=== PATIENT | female | born 1980 | race Caucasian/White ===

== ENCOUNTER 2016-08-13 16:34 | Emergency (ER) | payer OTHER ==
[~2016-08-13] VITALS: Ht 167.6 cm; Wt 109.1 kg
[~2016-08-13 16:34] MED LIST: CYCL10TA9 PO; ONDA8TAB7 PO; OXYC1TAB24 PO
[2016-08-13 16:43] VITALS: BP 178/98; PULSE 96; RESP 18; O2SAT 100
[2016-08-13 18:05] LABS: BASOPHILS % (AUTO) 0.2 % (0-3); EOSINOPHILS % (AUTO) 4.5 % (0-5); MONOCYTES % (AUTO) 7.5 % (4-12); Mean Corpuscular Hemoglobin 30.6 pg (27.0-35.0); Mean Corpuscular Volume 90.5 fL (81-100); NEUTROPHILS % (AUTO) 60.1 % (40-74); Platelet Count 342 bil/L (150-400)
[2016-08-13 18:26] LABS: Magnesium 1.9 mg/dL (1.6-2.6)
--- NOTE | 2016-08-13 18:27 | ED.REPORT ---
HPI-Abd Pain F Under 40 Date of Service Aug 13, 2016 ED Provider: Chase Ornelas MD This patient is a 36 year old female with a history of hysterectomy, kidney stones, and endometriosis presenting to the ED complaining of RLQ abdominal pain that started suddenly at 1430 today. Pt. was here 1.5 years ago for similar symptoms, and she states that the pain that she is feeling now is the same as this previous episode. At that time, she was diagnosed with swollen lymph nodes near her appendix. She also admits to a low-grade fever but denies diarrhea, hematuria, dysuria, or vomiting. Nursing Notes Stated Complaint: POSS APPENDIX Chief Complaint: Female Abdominal Pain Nursing Notes Reviewed: Yes Allergies: Coded Allergies: codeine (Verified Allergy, Intermediate, Nausea,Vomiting, 04/10/16) Scheduled Cyclobenzaprine (Cyclobenzaprine) 10 Mg Tablet 10 MG PO BID Tamsulosin (Flomax) 0.4 Mg Capsule 0.4 MG PO DAILY Scheduled PRN Ibuprofen (Ibuprofen) 800 Mg Tablet 800 MG PO TID PRN PRN For Pain Ondansetron ODT (Zofran ODT) 8 Mg Tablet 8 MG PO QID PRN PRN For Nausea oxyCODONE-Acetaminophen 5-325 mg (oxyCODONE-Acetaminophen 5-325 mg) 1 Each Tablet 1 TAB PO Q6H PRN PRN For Pain General Time Seen by MD: 18:24 Chief Complaint Abdominal pain (RLQ) Hx Obtained From: Patient Arrived By: Walk-in Sudden in Onset?: Yes Onset Occurred: 1 - 4 hours ago Symptom Duration: Since onset Progression since Onset: Unchanged Location: : RLQ Quality: Same as prior Radiation: : Does not radiate Severity: Current: Moderate Severity: Maximum: Moderate Associated with: Reports: Fever (Low-grade), Denies: Dysuria, Hematuria, Vomiting Pertinent Negative: Pt denies other symptoms Recent Healthcare: No recent doctor visit, No recent hospitalization Similar Sx Previous: Yes Past Medical History Past Medical History GERD Kidney stones History of UTI Endometriosis after diagnostic laparoscopy Osteoarthritis of the hands Depression Swollen lymph nodes around appendix Past Surgical History Diagnostic laparoscopy for endometriosis Shoulder Foot Reports: Hysterectomy Smoking History Never Smoker Social History Alcohol Use: "Social" Other Social History: Good social support, Local resident Ambulatory Status Independent Review of Systems Basic Review of Systems Eyes: Vision NL, No discharge ENT: Hearing NL, No pain, No nasal congestion, No pharyngeal pain Neurologic: NL mental status, No weakness, No numbness Psychiatric: Normal thought content Constitutional: Reports: Fever (Low-grade) GI: Reports: Abdominal pain, Denies: Diarrhea, Vomiting Female: Denies: Dysuria, Hematuria Complete sys rev & neg: except as marked. Physical Exam Initial Vital Signs Vital Signs (First) Date Time Temp Pulse Resp B/P Pulse Ox O2 Delivery O2 Flow Rate FiO2 08/13/16 16:43 36.3 96 18 178/98 100 Room Air Initial VS: Reviewed Head / Eyes: Atraumatic, Normocephalic, PERRL ENT: Mucous membranes moist, Conjunctiva normal, No scleral icterus Neck: Supple, Non-tender, Full range of motion Lymphatic: No lymphadenopathy Extremities: Vascular intact, Neuro intact Skin: Warm, Dry, No cyanosis Neurologic: Alert, Oriented, Nonfocal Psychiatric: Mood/affect normal General/Constitutional: Awake, Alert, Well appearing, Well developed Respiratory / Chest: Atraumatic, Breath sounds NL, Breath sounds = bilat, No respiratory distress Cardiovascular: Heart rate NL, Regular rhythm, Heart sounds NL, No murmurs Abdomen: Atraumatic, Soft, BS normoactive Back: Atraumatic, Full range of motion, No CVA tenderness Interpretation & Diagnostics Interpretation & Diagnostics: Abdomen CT: IMPRESSION: 1. No imaging explanation for right lower quadrant abdominal pain. The appendix is not well seen on current examination, presumably collapsed throughout its length. The appendix was visualized medial to the cecum on comparison CT scan. Absence of inflammatory changes in the right lower quadrant mesentery would make acute appendicitis unlikely. 2. 2 punctate nonobstructing right renal stones. 3. 2.1 cm dominant left adnexal cyst, presumably functional given the patient's age. 4. 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 Dictated by: Juancho Garcia M.D. on 08/13/2016 at 20:10 Approved by: Juancho Garcia M.D. on 08/13/2016 at 20:10 Lab Results Interpretation Result Diagram: 08/13/16 1758 08/13/16 1758 Test 08/13/16 17:00 08/13/16 17:51 08/13/16 17:58 Hold Urine Received (Received) Urine Color Yellow (YELLOW) Urine Appearance Clear (CLEAR,HAZY) Urine pH 6.5 (5.0-8.0) Urine Specific [place] 1.020 (1.003-1.035) Urine Protein Negativemg/dL (NEG,TRACE) Urine Glucose (UA) Negativemg/dL (NEGATIVE) Urine Ketones Negativemg/dL (NEGATIVE) Urine Occult Blood Trace (NEGATIVE) Urine Nitrite Negative (NEGATIVE) Urine Bilirubin Negative (NEGATIVE) Urine Urobilinogen Normalmg/dL (NORMAL) Urine Leukocyte Esterase Negative (NEGATIVE) Urine RBC 0-2/hpf (0-2) Urine WBC 0-5/hpf (0-5) Urine Epithelial Cells None/hpf (NONE-MOD) Urine Crystals Amorphous urates (NONE Urine Bacteria Few/hpf (NONE-FEW) Urine Hyaline Casts None/lpf (NONE) Urine Granular Casts None seen (NONE SEEN) Urine Waxy Casts None seen (NONE SEEN) Urine Red Blood Cell Casts None seen (NONE SEEN) Urine White Blood Cell Casts None seen (NONE SEEN) Urine Mucus Present (None Seen) Urine Trichomonas None seen (NONE SEEN) Urine Yeast None (NONE SEEN) Urinalysis Comment None Urine Culture Reflexed Not indicated White Blood Count 12.2th/mm3 (3.8-10.1) Red Blood Count 4.44mil/mm3 (3.90-5.20) Hemoglobin 13.6g/dL (12.0-15.6) Hematocrit 40.2% (35.0-46.0) Mean Corpuscular Volume 90.5fL (81-100) Mean Corpuscular Hemoglobin 30.6pg (27.0-35.0) Mean Corpuscular Hemoglobin Concent 33.8% (32.0-37.0) Red Cell Distribution Width 13.1% (12.3-15.4) Platelet Count 342bil/L (150-400) Neutrophils (%) (Auto) 60.1% (40-74) Lymphocytes (%) (Auto) 27.5% (14-46) Monocytes (%) (Auto) 7.5% (4-12) Eosinophils (%) (Auto) 4.5% (0-5) Basophils (%) (Auto) 0.2% (0-3) Sodium Level 135mEq/L (134-144) Potassium Level 4.0mEq/L (3.5-5.2) Chloride Level 98mEq/L (97-108) Carbon Dioxide Level 22mmol/L (18-29) Blood Urea Nitrogen 17mg/dL (6-20) Creatinine 0.61mg/dL (0.57-1.00) Estimat Glomerular Filtration Rate 158mL/min (>59) Glucose Level 95mg/dL (60-99) Calcium Level 9.2mg/dL (8.5-10.1) Magnesium Level 1.9mg/dL (1.6-2.6) Total Bilirubin 0.2mg/dL (0.0-1.2) Aspartate Amino Transf (AST/SGOT) 23U/L (0-50) Alanine Aminotransferase (ALT/SGPT) 34U/L (0-32) Alkaline Phosphatase 70U/L (25-150) Total Protein 7.3g/dL (6.4-8.4) Albumin 4.1g/dL (3.4-5.0) Lipase 30U/L (13-60) CT Abd / Pelvis Interpretation IMPRESSION: 1. No imaging explanation for right lower quadrant abdominal pain. The appendix is not well seen on current examination, presumably collapsed throughout its length. The appendix was visualized medial to the cecum on comparison CT scan. Absence of inflammatory changes in the right lower quadrant mesentery would make acute appendicitis unlikely. 2. 2 punctate nonobstructing right renal stones. 3. 2.1 cm dominant left adnexal cyst, presumably functional given the patient's age. 4. 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 Dictated by: Juancho Garcia M.D. on 08/13/2016 at 20:10 Interpretation / Wet Read by: Interpret - Radiologist Re-Eval/Medical Decision Med Decision/Clinical Course Med Decision/Clinical Course: 36-year-old female history of hysterectomy, endometriosis sitting with right upper quadrant pain since earlier today. Vital signs stable. CT abdomen and pelvis did not show any evidence of appendicitis though appendix poorly visualized. There were several small right renal stones. Urine negative for infection. Pain resolved with pain medications here. Patient is stable for discharge home with return precautions. We will give Flomax for kidney stones. Return precautions regarding use and symptoms appendicitis or any other new or worsening symptoms. Source of Hx: Old records Re-Evaluation/Progress : Time of Eval: 20:37 Patient Status: Condition improved Re-Evaluation/Progress Note: Pt rechecked, who is resting comfortably. She is informed of her radiology results, diagnosis, and the plan for discharge. The pt understands and agrees with the plan. All questions are addressed at this time. Counseled Regarding: Diagnosis, Lab results, Need for follow-up, When/why to return to ED Discharge & Departure Primary Impression: Right lower quadrant abdominal pain Additional Impression: Kidney stone Disposition: Home Discharge Condition All VS Reviewed: Yes Condition: Stable Patient Instructions: Acute Abdominal Pain (ED) Additional Instructions: Your CT scan did not show appendicitis, but the appendix was not well visualized. Return to the emergency department if you experience worsening right lower quadrant pain, vomiting, fever, or other new or worsening symptoms. We will treat you for a kidney stone. Follow up with your primary care physician in 2 to 3 days for further evaluation. Referrals: Mike Weir MD (PCP) Alcidesibjoo Attestation Portions of this note were transcribed by Romario Nino and oKri Diez. I, Dr. Ornelas personally performed the history, physical exam and medical decision-making; I reviewed and confirmed the accuracy of the information in the transcribed note. Signed by: Romario Nino and Halina Woo, 2015 and 2241. copies to: Mike Weir MD, Ben M MD Aug 13, 2016 18:27 Padmini Diez [Kori] Aug 13, 2016 18:44 ROMARIO NINO Aug 13, 2016 18:52
[2016-08-13] MEDS ORDERED: Ondansetron 2 mg/mL 2 mL Inj IVPUSH ONE (18:45)
[2016-08-13 18:48] LABS: APPEARANCE,URINE CLEAR (CLEAR,HAZY); COLOR,URINE YELLOW (YELLOW); OCCULT BLOOD,URINE TRACE (NEGATIVE); PH,URINE 6.5 (5.0-8.0); UROBILINOGEN,URINE NORMAL (NORMAL)
[2016-08-13 19:37] VITALS: BP 136/84; PULSE 94; RESP 18; O2SAT 98
--- NOTE | 2016-08-13 20:12 | DRSVH ---
PROCEDURE: CT ABDOMEN AND PELVIS WITH CONTRAST ([id number]) INDICATIONS: 36 year-old female with right lower quadrant pain since this afternoon. TECHNIQUE: After the administration of intravenous contrast, 5 mm thick sections acquired from the diaphragm to the symphysis. 5 mm coronal and sagittal reformats were acquired. For radiation dose reduction, the following was used: automated exposure control, adjustment of mA and/or kV according to patient jazmin ge. COMPARISON: [facility], CT, CT ABD PELVIS W CON, 06/29/2015, 16:37. FINDINGS: Image quality: Excellent. ABDOMEN: Lung bases: Lung bases are clear, except for linear posterior right lung base scarring. Heart size is normal. Solid organs: Liver and spleen are normal in size and enhancement. Gallbladder wall thickness is no rmal. Biliary system is non dilated. Pancreas enhances normally. No adrenal nodules. Kidneys demo nstrate normal size and enhancement, without hydronephrosis. 2 punctate nonobstructing right renal st ones are present. Peritoneum and bowel: Bowel loops demonstrate normal wall thickness and caliber. Posterior gastric fundal diverticulum is again noted, with internal air-fluid level. The appendix is not well-seen. No free fluid or air. Nodes and vessels: No retroperitoneal or mesenteric adenopathy by size criteria. Aorta and inferior vena cava are normal in size. Miscellaneous: No ventral hernias. PELVIS: Genitourinary: Bladder wall thickness is normal. Uterus is surgically absent. Ovaries are normal in size, with dominant 2.1 cm left adnexal cyst now apparent. Miscellaneous: No inguinal hernias or adenopathy. Bones: No suspicious bony lesions. No vertebral body compression fractures. IMPRESSION: 1. No imaging explanation for right lower quadrant abdominal pain. The appendix is not well seen on c urrent examination, presumably collapsed throughout its length. The appendix was visualized medial to the cecum on comparison CT scan. Absence of inflammatory changes in the right lower quadrant mesente ry would make acute appendicitis unlikely. 2. 2 punctate nonobstructing right renal stones. 3. 2.1 cm dominant left adnexal cyst, presumably functional given the patient's age. 4. 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 Dictated by: Juancho Garcia M.D. on 08/13/2016 at 20:10 Approved by: Juancho Garcia M.D. on 08/13/2016 at 20:10
[2016-08-13] MEDS ORDERED: TAMS0.4C98 PO (20:52)
[2016-08-13] MEDS ORDERED: IBUP800T28 PO (20:52)
[2016-08-13 21:01] VITALS: BP 132/84; PULSE 76; RESP 14; O2SAT 98
== END 2016-08-13 21:03 | disposition home or self-care (01) ==
LOC: SED 16:34
DX: R10.31 Right lower quadrant pain (principal); N20.1 Calculus of ureter; K21.9 Gastro-esophageal reflux disease without esophagitis; Z87.440 Personal history of urinary (tract) infections; Z88.5 Allergy status to narcotic agent
CPT/HCPCS: 36415; 74177; 80053; 81000; 83690; 83735; 85025; 96374; 96375; 99285; J2270; J2405; Q9967

== ENCOUNTER 2017-01-11 05:43 | Day surgery (SDC) | payer OTHER ==
[~2017-01-11] VITALS: Ht 165.1 cm; Wt 105.9 kg
[2017-01-11] MEDS: Lactated Ringer's 1,000 ML IV SCH ×2 (05:22→07:30)
[~2017-01-11 05:43] MED LIST changes: -CYCL10TA9 PO; +CeFAZolin Inj 2 GM in IV Premix 1 EACH IV ONE; -ONDA8TAB7 PO; -OXYC1TAB24 PO
[2017-01-11] MEDS ORDERED: fentaNYL-PF 50 mCg/mL 2 mL Inj ONE (05:44)
[2017-01-11] MEDS ORDERED: Propofol 10,000 mCg/mL 20 mL Inj ONE (05:44)
[2017-01-11] MEDS ORDERED: CeFAZolin Inj 2 gm / 50mL D5W IV ONE (05:45)
[2017-01-11 06:04] VITALS: BP 127/69; PULSE 79; RESP 16; O2SAT 100
[2017-01-11] MEDS ORDERED: Dexamethasone 4 mg/mL Inj IVPUSH PRN (07:45)
[2017-01-11] MEDS ORDERED: Lactated Ringer's 1,000 ML IV SCH (07:45)
[2017-01-11] MEDS ORDERED: HYDROmorphone 1 mg/mL Inj IVPUSH PRN (07:45)
[2017-01-11] MEDS ORDERED: EPHEDrine Sulfate 50 mg/mL Inj IVPUSH PRN (07:45)
[2017-01-11] MEDS ORDERED: Lactated Ringer's 500 ML IV PRN (07:45)
[2017-01-11] MEDS ORDERED: Ondansetron 2 mg/mL 2 mL Inj IVPUSH PRN (07:45)
[2017-01-11] MEDS ORDERED: MetoCLOpramide 5 mg/mL 2 mL Inj IVPUSH PRN (07:45)
[2017-01-11] MEDS ORDERED: Phenylephrine 10,000 mCg/mL Inj IVPUSH PRN (07:45)
--- NOTE | 2017-01-11 07:45 | PCM.HPANE ---
Patient Data Surgeon Admitting Provider: Attending Provider:Radames Duncan DPM Primary Care Physician:Elba Carpenter ARNP Other Provider:Jeanette Charles Anesthesia Reason for Visit Left Ankle Ganglion Cyst Ht/WT & BMI Height (Feet): 5 Height (Inches): 5.00 Weight (Kilograms): 105.9 Body Mass Index 38.00 Allergies Coded Allergies: codeine (Verified Allergy, Intermediate, Nausea,Vomiting, 04/10/16) Past Anesthesia History Anesthesia History: Denies:: Abnormal Airway, Anesthesia Reactions, Difficult Intubation, Fam Anesthesia Reaction, Malignant Hyperthermia Diabetes History Hx Diabetes?: No MRSA MRSA: No Medications Hypertension Medication: No Home Meds Incl Beta Anthony: No Discontinued Reported Medications Cyclobenzaprine 10 Mg [id number] Mg PO BID 10/17/15 Discontinued Scripts Ibuprofen 800 Mg [id number] Mg PO TID PRN For Pain #30 TABLET Ref 0 Prov:Chase Ornelas MD 08/13/16 Tamsulosin (Flomax)0.4 Mg Capsule0.4 Mg PO DAILY #30 CAPSULE Ref 0 Prov:Chase Ornelas MD 08/13/16 Ondansetron ODT (Zofran ODT)8 Mg Tablet8 Mg PO QID PRN For Nausea #12 TABLET Prov:Jr Roa PAC 04/10/16 oxyCODONE-Acetaminophen 5-325 mg 1 Each Tablet1 Tab PO Q6H PRN For Pain #12 TABLET Ref 0 Prov:Jr Roa PAC 04/10/16 History History of ENT Problems?: Yes HEENT History: Denies:: Abnormal Airway Cataracts Difficult Intubation Dysphagia Glaucoma Hearing Problem Sinus Problem TMJ Denture Type: None Teeth Condition: Within Normal Limits Hx of Heart Problems?: No Cardiovascular History: Denies:: Abdominal Aortic Aneurism Atrial Fibrillation Chest Pain Congestive Heart Failure Coronary Artery Disease Edema Heart Murmur Hypertension Irregular Heartbeat Pacemaker Hx of Respiratory Problem?: No Respiratory History: Denies:: Asthma COPD Cough Emphysema Oxygen Administration Pneumonia (remote hx of ) Tuberculosis Use of C-PAP Machine (negative sleep study) Hx Neurologic Problems?: Yes Neurological History: Denies:: CVA Dementia Dizziness Headaches (past hx of) Multiple Sclerosis Parkinson's Disease Seizures Hx of GI Problems?: No Hx of Problems?: Yes Genitourinary History: Positive for:: Kidney Stones (long time - passed on own ) Denies:: Urinary Tract Infection Female Hx: Positive for:: Endometriosis (S/P DX LAP) Denies:: Currently Problems with Breasts? Skin History: Denies:: History Skin Disorders? Pressure Ulcers Hx Musculoskeletal Problems?: Yes Musculoskeletal History: Positive for:: Back Injury (resolved injury whiplash ) Fibromyalgia Musculoskeletal Trauma (left ankle cyst current admission) Denies:: Degenerative Joint Joint Replacement Osteoarthritis Rheumatoid Arthritis Systemic Lupus Hx of Psycho/Social Problems?: No Psycho Social History: Denies:: Anxiety Hx Depression Hx Surgeries?: Yes (rotator cuff) Hx Any Other Health Problems?: Yes Other History: Denies:: Cancer Endocrine Disease Hospitalization Thyroid Disease History Blood Transfusions: Positive for:: Accept Blood Products? Denies:: Blood Transfusions Hx Diabetes: No Hx Alcohol Use: YesAlcoholic Drinks Per Day: 3 drinks weeklyHx Substance Use: No Smoking Status: Never Smoker Have You Smoked inLast 12 mo: No Stop/Bang S-Snoring: Do You Snore Loudly: No T-Tired: feel tired, fatigued: No O-Obsered: Observed not breath: No P-Blood Pressure: treated: No B- Body Mass Index > 35 kg/m2: Yes A- Age over 50: No N- Neck Large Circumference: No G- Gender Male: No EDILBERTO Total Score: 1 Risk Assessment Category Category 1A: Patient has history of documented sleep apnea, and HAS NOT received any narcotic, sedative or anesthesia administration during this stay. Category 1B: Patient has history of documented sleep apnea, and HAS received any narcotic , sedative or anesthesia administration during this stay Category 2: Patient has SUSPECTED Obstructive Sleep Apnea, and HAS received any narcotic , sedative or anesthesia administration during this stay. Category 3: Patient has SUSPECTED Obstructive Sleep Apnea and HAS NOT received narcotic, sedative or anesthesia administration during this stay. Category 4: Outpatient in Procedural Areas with known sleep apnea or who screen positive for High Risk via the STOP/BANG questionnaire. Exam Exam Vital Signs Vital Signs Date Time Temp Pulse Resp B/P Pulse Ox O2 Delivery O2 Flow Rate FiO2 01/11/17 06:04 36.6 79 16 127/69 100 Room Air General Appearance: Alert, Oriented X3, Cooperative, No Acute Distress HEENT/AIRWAY: MP 2 Lungs: Clear to Auscultation Heart: Exam Unremarkable Meds/Labs/Diagnostics Admission Meds Current Medications Lactated Ringer's (Lr) 1,000 ml @ 120 mls/hr Q8H20M IV Last administered on t 05:22; Start 01/11/17 at 05:00; Stop 01/11/17 at 13:19 Plan Impression Patient chart reviewed, patient interviewed and anesthestic plan with risks, benefits, and alternatives discussed, and informed consent obtained. Parag Billy MD Jan 11, 2017 07:18
[2017-01-11] MEDS ORDERED: Bupivacaine-MPF 0.5% W/EPI 30 mL Inj INFILTRATE ONE (07:55)
[2017-01-11] MEDS ORDERED: Dexamethasone 4 mg/mL Inj INTRARTICU ONE (08:51)
[2017-01-11 09:11] VITALS: BP 137/57; PULSE 90; RESP 16; O2SAT 95
[2017-01-11] MEDS: fentaNYL-PF 50 mCg/mL 2 mL Inj IVPUSH PRN ×2 (09:11→09:23)
[2017-01-11] MEDS ORDERED: hydrOXYzine Pamoate 25 mg Capsule PO PRN (09:35)
[2017-01-11 09:57] VITALS: BP 131/55; PULSE 80; RESP 16; O2SAT 95
--- NOTE | 2017-01-14 14:39 | PATH ---
SURGICAL PATHOLOGY Attending Physician:Radames Duncan DPM CASE STATUS: Signed Out PATIENT NAME: JULIO OCAMPO PID: [id number] : 1980 DATE COLLECTED:01/11/2017 15:20 SPECIMEN: Ganglion Cyst CLINICAL HISTORY: LEFT ANKLE /FOOT GANGLION CYST 1. LEFT FOOT GANGLION CYST FINAL DIAGNOSIS: 1.LEFT FOOT GANGLION CYST: GANGLION CYST. ICD10 M67.4 GROSS DESCRIPTION: The specimen is received in one formalin filled container labeled with the patient's name, sublabeled "left foot ganglion cyst" and consists of 2 pink-ramirez portions of tissue which aggregate to 0.7 x 0.3 x 0.2 CM. The specimen is inked blue, sectioned into 4 total pieces and entirely submitted in one cassette. 01/11/2017 DAC MICRO DESCRIPTION: See diagnosis. ICD-9 CODES: CPT CODES: 1: 04337 Electronically Signed Out Bruce Child MD [facility] [address], [place] [address] Technical component performed at [facility], [facility] [address], [place], [address]
--- NOTE | 2017-01-15 03:27 | OP ---
[address] [address] OPERATIVE REPORT PATIENT: JULIO OCAMPO : 1980 MR#: [id number] ADMIT: 01/11/2017 JOB ID: [id number] DATE OF SURGERY: 01/11/2017 SURGEON: Radames Duncan DPM PREOPERATIVE DIAGNOSIS(ES): Complex ganglion cyst of the left forefoot. POSTOPERATIVE DIAGNOSIS(ES): Complex ganglion cyst of the left forefoot. PLANNED PROCEDURE: Excision of cyst with fluoroscopic guidance left foot. ANESTHESIA: Local with IV sedation. HEMOSTASIS: None. ESTIMATED BLOOD LOSS: Less than 5 cc. COMPLICATIONS: None. PROCEDURE AND FINDINGS: The patient is brought to the operating room and placed on table in supine position. She was given a loading dose of sedation during the affect of which I performed a medial Ang blockade on the left foot. The left lower extremity was prepped and draped in sterile fashion. I then directed attention to the palpable cyst on the dorsal and medial aspect of the base of the 1st metatarsal. An incision was placed within skin lines and gently dissected down to the cyst. I was careful to ligate or cauterize any bleeders that were exposed. Otherwise I preserved all vascular and neurologic structures at the wound site. Through blunt dissection I was able to expose the ganglion cyst and then acquired Isoview for injection identifying the margins and anatomic location of the cyst. This was found to communicate distally down to the previous location of the patient's tibial sesamoid which had been excised about three years ago. This is due to a chronic nonhealing fracture and associated symptoms. The contrast was not found however to communicate with the metatarsophalangeal joint. I bluntly dissected the cyst free keeping it intact as long as possible. At one point it did rupture and released clear ganglionic cyst fluid which was gelatinous in consistency. No pigmentation or other pathologic findings were identified. The cyst was dissected free of adjacent tissue followed down to its distal stalk, which was tied off with a double ligating knot of 3-0 Vicryl. Wound was flushed with normal saline followed by deep closure of 3-0 Vicryl and a subcutaneous closure of 4-0 Vicryl further secured with Steri-Strips over tincture of benzoin. Prior to complete closure I did introduce 1 cc of 4 mg/mL solution of dexamethasone sodium phosphate. This is intended to reduce the inflammatory response and hopefully reduce likelihood of recurrence. The incision was dressed with saline moistened De La Cruz silk, saline soaked gauze fluffs, gauze roll, Kerlix, and Jimmy bandage. The patient is placed in the postoperative boot. The patient is transferred from the operating room in stable condition, having tolerated the procedure and anesthetic well. Local lasting block was performed prior to dressing application. Was noted during the course of procedure that the first common dorsal cutaneous nerve of the great toe was deeply imbedded into the superficial cyst wall. During dissection caution was taken to preserve this and reduce any disruption. Hopefully the dexamethasone will secondarily reduce any inflammatory response to the perineural tissues. The patient tolerated the procedure and anesthetic well. She had lasting block that confirmed it. POSTOPERATIVE PLAN: The patient is directed to keep dressings clean, dry, and intact. She may ambulate to tolerance, but is encouraged to use ice and elevation for pain control. I also prescribed her pain medicine in the form of Dilaudid 2 mg 1-2 p.o. q.4-6 hours p.r.n. pain in conjunction with hydroxyzine. Choice of this medication was made on patient's previous experience with both hydrocodone and oxycodone, which cause her nausea. She had good response to both hydromorphone and regular morphine without side effect therefore this is the ideal choice for her postoperative pain management. I do not anticipate her needing long-term management, but certainly the 1st few days she will require some. The patient's questions are answered. She is provided with after hour numbers and my cell phone contact should there be any complications. I will follow her over the weekend by phone interview.
== END 2017-01-11 23:59 | disposition home or self-care (01) ==
LOC: SAS 05:43
PROVIDERS: ATTEND Podiatrist
DX: M67.472 Ganglion, left ankle and foot (principal); M79.7 Fibromyalgia
CPT/HCPCS: 28090; 76000; J0690; J1100; J2405; J2765; J3010; J7120